=== PATIENT | female | born 1975 | race Caucasian/White ===

== ENCOUNTER → 2024-01-02 14:07 | Outpatient (REF) | payer OTHER, SELFPAY | LOC: WDC 14:07 | PROVIDERS: ATTENDING PHYSICIAN Obstetrics & Gynecology Gynecology; FAMILY PHYSICIAN Internal Medicine | DX: Z01.419 Encounter for gynecological examination (general) (routine) without abnormal findings (principal); Z12.31 Encounter for screening mammogram for malignant neoplasm of breast | CPT/HCPCS: 77063; 77067 ==

== ENCOUNTER 2024-06-24 14:43 | Emergency (ER) | payer OTHER, SELFPAY ==
[2024-06-24 15:00] VITALS: BP 115/75
--- NOTE | 2024-06-24 15:03 | ED.GENMED ---
ED Provider Triage
<Melissa Carrera PA-C - Last Filed: 06/24/24 15:05>
-
Patient seen by provider in Triage?: Seen in Triage
Attestation: A medical screening examination has been initiated by a qualified medical provider. Based on the assessment performed at this time, it has been determined that an emergent medical condition may exist and the patient has been informed
that further medical evaluation and possible additional diagnostic testing may be needed.
HPI: 48yoF here with atraumatic L shoulder pain x 2 days. Worse with movement, wearing sling with improvement.
GENERAL: Alert , in no apparent distress
EYE: No visual abnormalities.
NECK: Trachea midline
ENT: No visible abnormalities.
LUNGS: No acute respiratory distress
NEUROLOGICAL: Alert and oriented
SKIN: Skin intact. No visible changes.
MUSCULOSKELETAL: Moving extremities normally
PSYCH: Normal and appropriate interaction.
This is a medical evaluation conducted in person to initiate diagnostic evaluation and provide initial therapeutics. Please see further documentation by the treating clinician.
L shoulder x-rays ordered.
History of Present Illness
<Melissa Carrera PA-C - Last Filed: 06/24/24 15:05>
General
Chief Complaint: Musculo-Skeletal Complaint
Time Seen by Provider: 06/24/24 15:19
<Yuri Watts DO - Last Filed: 06/24/24 18:07>
History of Present Illness
History of Present Illness:
TIME OF INITIAL ENCOUNTER: 3:30 PM
HPI: Patient presents due to left shoulder pain. This started 2 mornings ago as she woke up. She does do yoga twice a week but otherwise describes no overuse type of injury. There was no direct trauma. The pain clearly worsens much much worse
when she attempts to abduct. The pain is primarily localized to the anterior aspect of the left shoulder.
EXAM:
GENERAL: Well appearing in no distress
HEENT: Moist oral mucosa
NEUROLOGIC: Excellent strength all extremities, no obvious coordination deficits
PSYCHIATRIC: Appropriate mental status, normal insight and judgement
EXTREMITIES: There is point tenderness at the proximal aspect of the proximal biceps tendon, no bony tenderness, there is a positive empty can test, markedly decreased active range of motion due to pain
SKIN: No rash, no lesions
NUMBER AND COMPLEXITY OF PROBLEMS ADDRESSED AT THE ENCOUNTER
� Chronic conditions affecting care: No significant past medical history
� Acute Exacerbation and/or Progression of Chronic Illness: This is an acute problem
� Differential Diagnosis includes: Rotator cuff injury, bicipital tendinitis, highly doubt bony pathology
AMOUNT AND/OR COMPLEXITY OF DATA TO BE REVIEWED AND ANALYZED
� I performed an independent evaluation of and my interpretation is:
EKG:
CT:
X-rays: I personally viewed x-rays and see no evidence of acute fracture or dislocation
Laboratory Studies:
Other:
� Review of other/old records: No old records available for review
� Clinical information was obtained by an independent historian: I spoke to parents at bedside
� Prescriptions/Medications Considered but not given: No indication for narcotic analgesia and she also declines anything stronger
� Further testing considered but not performed:
RISK OF COMPLICATIONS AND/OR MORBIDITY OR MORTALITY OF PATIENT MANAGEMENT
� Social determinants of health affecting care: Lives at home, works as a special needs teacher
� Discussion with other providers:
� Escalation of care including admission/observation vs risk of discharge considered: The patient already had been using a sling which does help 'tremendously'. Suspect either rotator cuff pathology versus bicipital tendinitis.
Regardless she will continue sling and I also encouraged her to increase the use of ibuprofen as she has only been taking 1 pill at a time.
ANY OTHER UPDATES:
Phy Exam
<Yuri Watts, DO - Last Filed: 06/24/24 18:07>
Physical Exam
Physical Exam:
See HPI
Course
<Melissa Carrera PA-C - Last Filed: 06/24/24 15:05>
Orders/Labs/Results
Orders:
Orders
06/24/24 15:05
CR Shoulder - Left Min 2 View* Urgent
Comment:
Reason For Exam: atraumatic pain
Vital Signs
Initial and Last Documented VS:
Initial Vital Signs
Temp Pulse Resp BP Pulse Ox
36.9 C 97 16 115/75 97
06/24/24 15:00 06/24/24 15:00 06/24/24 15:00 06/24/24 15:00 06/24/24 15:00
Last Documented Vital Signs
Temp Pulse Resp BP Pulse Ox
36.9 C 82 18 99/61 97
06/24/24 15:00 06/24/24 16:26 06/24/24 16:26 06/24/24 16:26 06/24/24 15:00
<Yuri Watts DO - Last Filed: 06/24/24 18:07>
Orders/Labs/Results
Orders:
Orders
06/24/24 15:05
CR Shoulder - Left Min 2 View* Urgent
Comment:
Reason For Exam: atraumatic pain
Vital Signs
Initial and Last Documented VS:
Initial Vital Signs
Temp Pulse Resp BP Pulse Ox
36.9 C 97 16 115/75 97
06/24/24 15:00 06/24/24 15:00 06/24/24 15:00 06/24/24 15:00 06/24/24 15:00
Last Documented Vital Signs
Temp Pulse Resp BP Pulse Ox
36.9 C 82 18 99/61 97
06/24/24 15:00 06/24/24 16:26 06/24/24 16:26 06/24/24 16:26 06/24/24 15:00
<Yuri Watts DO - Last Filed: 06/24/24 18:07>
*Critical Care Note
Total Time (30-74mins, 75-104mins- exclusive of procedures): Not Applicable
ED Attending Note
<Melissa Carrera PA-C - Last Filed: 06/24/24 15:05>
-
Portions of this chart may have been created with voice recognition software.� Occasional wrong word or��sound alike� substitutions may have occurred due to the inherent limitations of voice recognition software.
Discharge Plan
Departure
Patient Disposition: Home (Routine Discharge)
Date of Disposition: 06/24/24
Time of Disposition: 15:43
Patient with high blood pressure during this ER visit?: Yes
Discharge Problem:
Biceps tendinitis
Instructions: Rotator Cuff Tendinitis Stretching Exercises, Rotator Cuff Tendinitis Strengthening Exercises
Referrals:
Melania Vinson CRNP [Family Provider] -
Nitin Oleary MD [Active] - Follow up in 2-3 days
Activity Restrictions/Additional Instructions:
I have given the contact information for local orthopedist to follow-up with, Dr. Oleary. Continue to use the sling. Please follow-up with your primary care doctor. I recommend 3-4 [id number] ibuprofen (Motrin) every 8 hours with food
for a few days. Return here if worse.
Interventions
Interventions:
*Risk Screen - Suicide Last Done: 06/24/24 15:02
*General Assessment Last Done: 06/24/24 16:28
*Neglect/Abuse Screening Last Done: 06/24/24 15:02
*Nursing Disposition Last Done: 06/24/24 16:28
ED-Musculoskeletal Assessment Last Done: 06/24/24 15:25
Discharge Date and Time
Discharge Date/Time: 06/24/24 16:29
Print Language: AUSTRIAN
[2024-06-24 16:26] VITALS: BP 99/61
== END 2024-06-24 16:29 | disposition home or self-care (01) ==
LOC: EMR 14:43
PROVIDERS: EMERGENCY PHYSICIAN Emergency Medicine; FAMILY PHYSICIAN Nurse Practitioner Adult Health
DX: M75.22 Bicipital tendinitis, left shoulder (principal); R03.0 Elevated blood-pressure reading, without diagnosis of hypertension
CPT/HCPCS: 99283; 73030

== ENCOUNTER → 2025-01-11 08:01 | Outpatient (REF) | payer OTHER, SELFPAY | LOC: WDC 08:01 | PROVIDERS: ATTENDING PHYSICIAN Obstetrics & Gynecology Gynecology; FAMILY PHYSICIAN Internal Medicine | DX: Z12.31 Encounter for screening mammogram for malignant neoplasm of breast (principal) | CPT/HCPCS: 77063; 77067 ==